=== PATIENT | female | born 1990 | race Two or more races ===

== ENCOUNTER 2023-09-28 07:58 | Emergency (ER) | payer OTHER ==
[~2023-09-28] VITALS: Ht 153 cm; Wt 60.9 kg
[2023-09-28 08:22] VITALS: TEMP 98
[2023-09-28] MEDS: ALBUTEROL SULFATE 2.5 MG/0.5 ML NEB SOLUTION NEB ONE (08:43)
[2023-09-28] MEDS: IPRATROPIUM BROMIDE 0.5 MG/2.5 ML NEB SOLUTION NEB ONE (08:43)
[2023-09-28 08:45] VITALS: PULSE 86; RESP 20; O2SAT 97
[2023-09-28 08:57] VITALS: PULSE 87; RESP 20; O2SAT 100
[2023-09-28 09:44] LABS: COVID AG,FIA SOURCE NASAL SWAB
[2023-09-28] MEDS: PredniSONE 20 MG TABLET PO ONE (10:04)
[2023-09-28] MEDS: ALBUTEROL SULFATE HFA 90 MCG/PUFF 8 GM INHALER IH ONE (10:04)
[2023-09-28 10:42] LABS: SARS-COV2 (COVID) ANTIGEN,FIA Negative (Negative)
[2023-09-28 10:43] LABS: INFLUENZA TYPE A NEGATIVE FOR TYPE A (NEGATIVE); INFLUENZA TYPE B NEGATIVE FOR TYPE B (NEGATIVE)
[2023-09-28] MEDS ORDERED: ALBU18HF12 IH (12:46)
[2023-09-28] MEDS ORDERED: PRED-554 PO (12:46)
[2023-09-28 13:00] VITALS: BP 110/68; PULSE 89; RESP 16; O2SAT 98
== END 2023-09-28 13:42 | disposition home or self-care (01) ==
LOC: EMS 07:58
DX: J45.901 Unspecified asthma with (acute) exacerbation (principal); Z20.822 Contact with and (suspected) exposure to COVID-19
CPT/HCPCS: 99283; 87426; 87804; 94640; J7512; J3535; 99284